=== PATIENT | female | born 1945 | race Caucasian/White ===

== ENCOUNTER → 2016-07-08 | Outpatient (CLI) | payer OTHER, BC | END | disposition home or self-care (01) | LOC: C.PAPS 14:33 | PROVIDERS: ATTEND Obstetrics & Gynecology | DX: Z12.4 Encounter for screening for malignant neoplasm of cervix (principal) ==

== ENCOUNTER → 2016-09-09 | Outpatient (CLI) | payer OTHER, BC ==
--- NOTE | 2016-09-09 14:52 | MAMMOGRAPHY REPORT ---
BILATERAL DIGITAL SCREENING MAMMOGRAM WITH CAD: 09/09/2016 CLINICAL HISTORY: Routine screening. Patient has no complaints. TECHNIQUE: Bilateral CC and MLO views were obtained. Current study was also evaluated with a Comput er Aided Detection (CAD) system. COMPARISON: Comparison is made to exams dated: 09/09/2015 mammogram, 09/05/2014 mammogram, 09/04/2013 mammogram, 08/31/2012 mammogram, 08/19/2011 mammogram, and 08/06/2010 mammogram - [facility]. BREAST COMPOSITION: There are scattered areas of fibroglandular density in both breasts. FINDINGS: There is stable nodular asymmetry in the anterior subareolar right breast. There are mil d vascular calcifications and scattered benign-appearing microcalcifications. No new suspicious mas s, architectural distortion or cluster of microcalcifications is seen. IMPRESSION: ACR BI-RADS CATEGORY 1: NEGATIVE There is no mammographic evidence of malignancy. A 1 year screening mammogram is recommended. The p atient will receive written notification of the results. Approximately 10% of breast cancers are not detected with mammography. A negative mammographic repor t should not delay biopsy if a clinically suggestive mass is present. Sandi Nickerson M.D. ay/:09/09/2016 11:53:35 [employer] Driver: Jen NOLASCO(R)(M), [facility] letter sent: Normal 1/2 BI-RADS Code: ACR BI-RADS Category 1: Negative
== END ==
LOC: C.MAMM 10:40
PROVIDERS: ATTEND Obstetrics & Gynecology
DX: Z12.31 Encounter for screening mammogram for malignant neoplasm of breast (principal)

== ENCOUNTER → 2016-09-28 | Outpatient (CLI) | payer OTHER, BC ==
--- NOTE | 2016-09-28 14:04 | DIAGNOSTIC IMAGING REPORT ---
LEFT ANKLE MIN 3 VIEWS ROUTINE CLINICAL HISTORY: Left ankle pain COMPARISON: None. DISCUSSION: There is a 2 mm age-indeterminate avulsion adjacent the lateral malleolar tip. There is a corticated ossicle adjacent to medial malleolar tip. This felt to be old. There is minor lateral soft tissue swelling. The ankle mortise appears intact. IMPRESSION: 2 mm age-indeterminate avulsion adjacent to the lateral malleolar tip. Electronically signed by: Jordan Rosario M.D. 09/28/2016 2:03 PM Dictated Date/Time: 09/28/2016 2:02 PM
== END | disposition home or self-care (01) ==
LOC: C.RAD 13:42
PROVIDERS: ATTEND Internal Medicine
DX: S99.919A Unspecified injury of unspecified ankle, initial encounter (principal); X58.XXXA Exposure to other specified factors, initial encounter

== ENCOUNTER → 2016-10-23 | Outpatient (CLI) | payer OTHER, BC ==
--- NOTE | 2016-10-23 13:21 | DIAGNOSTIC IMAGING REPORT ---
LEFT ANKLE 3 VIEWS HISTORY: LEFT ANKLE PAIN COMPARISON: Left ankle 09/28/2016. FINDINGS: No change in the 2 mm age-indeterminate avulsion fracture at the tip of the lateral malleolus. There is also a small ossific density adjacent to the medial malleolus consistent with an old avulsion injury. Mild soft tissue swelling, unchanged. No dislocation. No radiopaque foreign bodies. IMPRESSION: No change in the 2 mm age-indeterminate avulsion adjacent to the tip of the lateral malleolus. Electronically signed by: Brady Singh M.D. 10/23/2016 1:20 PM Dictated Date/Time: 10/23/2016 1:18 PM
== END | disposition home or self-care (01) ==
LOC: C.RDSM 14:05
PROVIDERS: ATTEND Physician Assistant
DX: M25.572 Pain in left ankle and joints of left foot (principal)

== ENCOUNTER → 2016-11-30 | Outpatient (CLI) | payer OTHER, BC ==
[2016-11-30 12:12] LABS: BASO % 0.2 %; BASO ABS # 0.01 K/uL (0-0.2); COMPLETE YES; HEMATOCRIT 40.8 % (37-47); IG% 0.2 %; LYMPH % 32.9 %; LYMPH ABS # 1.57 K/uL (1.2-3.4); MEAN CELL VOLUME 92.5 fL (80-100); MEAN CORPUSCULAR HEMOGLOBIN 30.4 pg (25-34); MEAN CORPUSCULAR HGB CONC 32.8 g/dl (32-36); MONO % 12.4 %; NEUT % 53.3 %; PLATELET COUNT 268 K/uL (130-400); RED BLOOD COUNT 4.41 M/uL (4.2-5.4); WHITE BLOOD COUNT 4.77 K/uL (4.8-10.8)
[2016-11-30 12:36] LABS: CHOLESTEROL/HDL RATIO 2.6
== END | disposition home or self-care (01) ==
LOC: C.LABBFT 10:59
PROVIDERS: ATTEND Internal Medicine
DX: R05 Cough (principal); Z13.6 Encounter for screening for cardiovascular disorders; M85.80 Other specified disorders of bone density and structure, unspecified site; K44.9 Diaphragmatic hernia without obstruction or gangrene

== ENCOUNTER → 2016-11-30 | Outpatient (CLI) | payer OTHER, BC ==
[~2016-11-30] MED LIST: OPTIRAY 320 IV PRN
--- NOTE | 2016-11-30 10:50 | DIAGNOSTIC IMAGING REPORT ---
CT OF THE CHEST WITH IV CONTRAST CLINICAL HISTORY: Chronic cough COMPARISON STUDY: No previous studies for comparison. TECHNIQUE: Following the IV administration of 93 mL of Optiray-320, CT of the thorax was performed from the thoracic inlet to the lung bases. Images are reviewed in the axial, sagittal, and coronal planes. IV contrast was administered without complication. A dose lowering technique was utilized adhering to the principles of ALARA. CT DOSE: 245.52 mGycm FINDINGS: Thyroid: There is a 4 mm right lobe thyroid nodule. Thoracic aorta: The thoracic aorta is normal in course and caliber, noting standard 3-vessel arch anatomy. No aneurysm or dissection is seen. Pulmonary vasculature: The pulmonary trunk is normal in caliber. There are no central filling defects identified to suggest pulmonary embolus. Note that this examination was not protocoled for the evaluation of pulmonary emboli. HEART: The heart is normal in size and configuration, without pericardial effusion. Lungs and pleural spaces: There are no pleural effusions. There is no focal pulmonary consolidation. There is minor apical scarring. No endobronchial lesions are visualized. Mediastinum: There is no mediastinal lymphadenopathy. Maria Dolores: Clear. Axilla: Clear. Upper abdomen: There is a hiatal hernia. Skeletal structures: There are no lytic or blastic osseous lesions. IMPRESSION: 1. No acute intrathoracic findings 2. No evidence of pathologic adenopathy 3. No suspicious pulmonary masses. No evidence of focal pulmonary consolidation 4. Hiatal hernia Electronically signed by: Jordan Rosario M.D. 11/30/2016 10:48 AM Dictated Date/Time: 11/30/2016 10:45 AM
== END | disposition home or self-care (01) ==
LOC: C.CTS 10:07
PROVIDERS: ATTEND Internal Medicine Critical Care Medicine
DX: R05 Cough (principal); K44.9 Diaphragmatic hernia without obstruction or gangrene

== ENCOUNTER → 2016-12-29 | Outpatient (CLI) | payer OTHER, BC | END | disposition home or self-care (01) | LOC: C.MAMM 12:35 | PROVIDERS: ATTEND Internal Medicine | DX: S82.402A Unspecified fracture of shaft of left fibula, initial encounter for closed fracture (principal); X58.XXXA Exposure to other specified factors, initial encounter; M85.89 Other specified disorders of bone density and structure, multiple sites ==

== ENCOUNTER → 2017-02-08 | Outpatient (CLI) | payer OTHER, BC ==
--- NOTE | 2017-02-08 16:39 | DIAGNOSTIC IMAGING REPORT ---
L VENOUS DOPP LOWER EXT UNILAT HISTORY: 72 years-old Female LLE PAIN SWELLING acute left lower extremity pain and swelling COMPARISON: None available TECHNIQUE: Multiple real-time sonogram images of the left lower extremity deep venous structures were obtained assessing grayscale appearance, color and spectral flow FINDINGS: There is normal flow, phasicity and augmentation of the left lower extremity deep venous structures. There is a slightly irregular mildly complex fluid collection of the lateral aspect of the left thigh, 18.7 x 5.9 x 6.5 cm which is parallel to the skin surface without internal vascularity documented. This collection appears to be within the deep subcutaneous and/or intramuscular. IMPRESSION: 1. No sonographic evidence of deep venous thrombosis. 2. Irregular complex hypoechoic collection of the lateral superior left thigh measuring up to 18.7 x 5.9 x 6.5 cm appears intramuscular and is nonspecific with differential considerations including liquefying hematoma or abscess. The above report was generated using voice recognition software. It may contain grammatical, syntax or spelling errors. Electronically signed by: Jung Nguyen M.D. 02/08/2017 4:38 PM Dictated Date/Time: 02/08/2017 4:34 PM
== END | disposition home or self-care (01) ==
LOC: C.ULTR 15:49
PROVIDERS: ATTEND Internal Medicine
DX: M79.89 Other specified soft tissue disorders (principal); R93.6 Abnormal findings on diagnostic imaging of limbs

== ENCOUNTER → 2017-07-19 | Day surgery (SDC) | payer OTHER, BC ==
[2017-07-02 09:47] VITALS: Ht 162.6 cm; Wt 61.8 kg
[~2017-07-19] VITALS: Ht 162.6 cm; Wt 61.8 kg
[~2017-07-19] MED LIST changes: +LIDOCAINE HCL 2% 2 ML VIAL (20MG/ML) ONE; +MECL1TAB42 PO; -OPTIRAY 320 IV PRN; +PROPOFOL IV EMULSION 10 MG/ML 20 ML VIAL IV ONE; +SODIUM CHLORIDE 0.9% 500ML 500 ML IV ONE
--- NOTE | 2017-07-19 14:15 | Endo History and Physical ---
History & Physical Date of Service: Jul 19, 2017. Chief Complaint: REFLUX/CHRONIC COUGH Referring Physician: DR CALIXTO/SWEET History of Present Illness 72 yo CF who presents for EGD with Hsieh pH placement secondary to GERD and chronic cough. Past Surgical History Hx Cardiac Surgery: No Hx Internal Defibrillator: No Hx Pacemaker: No Hx Abdominal Surgery: Yes (TUBAL LIGATION) Hx of Implantable Prosthesis: No Hx Post-Op Nausea and Vomiting: No Hx Cancer Surgery: Yes (BCC REMOVED) Hx Thoracic Surgery: No Hx Orthopedic: No Hx Urinary Tract Surgery: No Family History Colon CA Social History Smoking Status: Never Smoker Hx Substance Use: No Hx Alcohol Use: Yes (OCCASIONALLY) Allergies Coded Allergies: No Known Allergies (Verified , 07/02/17) Current Medications Reported Home Medications Medications Dose Route/Sig Max Daily Dose Days Date Category Meclizine Hcl 25 Mg Tab 1 Tab PO DIRECTED PRN 07/02/17 Reported Vital Signs Weight (Kilograms): 61.82 Height (Feet): 5 Height (Inches): 4 Date Time Temp Pulse Resp B/P (MAP) Pulse Ox O2 Delivery O2 Flow Rate FiO2 07/19/17 13:25 36.9 85 18 132/68 (89) 98 Room Air Physical Exam General Appearance: WD/WN, no apparent distress Respiratory/Chest: Auscultation: breath sounds normal Cardiovascular: Heart Auscultation: RRR Abdomen: Bowel Sounds: normal Inspection & Palpation: soft, non-distended, no tenderness, guarding & rebound Assessment and Plan Assessment: 72 yo CF who presents for EGD with Hsieh pH placement secondary to GERD and chronic cough. Plan: Proceed with EGD.
--- NOTE | 2017-07-19 15:07 | Anesthesiology Progress Note ---
Anesthesia Post Op Note Date & Time Jul 19, 2017 at 15:07 Vital Signs Pain Intensity: 0 Vital Signs Past 12 Hours Date Time Temp Pulse Resp B/P (MAP) Pulse Ox O2 Delivery O2 Flow Rate FiO2 07/19/17 13:25 36.9 85 18 132/68 (89) 98 Room Air Notes Mental Status: alert / awake / arousable, participated in evaluation Pt Amnestic to Procedure: Yes Nausea / Vomiting: adequately controlled Pain: adequately controlled Airway Patency, RR, SpO2: stable & adequate BP & HR: stable & adequate Hydration State: stable & adequate Anesthetic Complications: no major complications apparent Earlier note was entered prematurely. At this time (1530) pt is awake, alert and oriented in PACU without complaints or complications.
--- NOTE | 2017-07-19 15:22 | GI REPORT ---
Procedure Date: 07/19/2017 1:58 PM Procedure: Upper GI endoscopy Indications: Suspected gastro-esophageal reflux disease Medicines: Monitored Anesthesia Care Complications: No immediate complications. Estimated Blood Loss: Estimated blood loss: none. Procedure: Pre-Anesthesia Assessment: - Prior to the procedure, a History and Physical was performed, and patient medications and allergies were reviewed. The patient's tolerance of previous anesthesia was also reviewed. The risks and benefits of the procedure and the sedation options and risks were discussed with the patient. All questions were answered, and informed consent was obtained. Prior Anticoagulants: The patient has taken no previous anticoagulant or antiplatelet agents. ASA Grade Assessment: II - A patient with mild systemic disease. After reviewing the risks and benefits, the patient was deemed in satisfactory condition to undergo the procedure. After obtaining informed consent, the endoscope was passed under direct vision. Throughout the procedure, the patient's blood pressure, pulse, and oxygen saturations were monitored continuously. The scope was introduced through the mouth, and advanced to the second part of duodenum. The upper GI endoscopy was accomplished without difficulty. The patient tolerated the procedure well. Findings: A moderate Schatzki ring (acquired) was found at the gastroesophageal junction. A TTS dilator was passed through the scope. Dilation with an 18-19-20 mm balloon dilator was performed to 20 mm. The dilation site was examined and showed moderate improvement in luminal narrowing. A small hiatal hernia was present. The examined duodenum was normal. Impression: - Moderate Schatzki ring. Dilated. - Small hiatal hernia. - Normal examined duodenum. - No specimens collected. Recommendation: - Resume previous diet. - Use Protonix (pantoprazole) 40 mg PO daily. - Return to GI clinic as previously scheduled. - No Hsieh pH monitor placed, as patient has Hiatal hernia and Schatzki's ring, therefore, will treat with PPI therapy and reevaluate in approximately 6 weeks. If still symptomatic, can consider Hsieh pH monitor at that time. Dayne Alfaro, DO 07/19/2017 3:21:59 PM This report has been signed electronically. Note Initiated On: 07/19/2017 1:58 PM I attest to the content of the Intraoperative Record and orders documented therein, exceptions below
--- NOTE | 2017-07-19 15:23 | Discharge Instructions ---
Endoscopy Patient Instructions Date / Procedure(s) Performed Jul 19, 2017. EGD Allergy Information Coded Allergies: No Known Allergies (Verified , 07/02/17) Discharge Date / Findings Jul 19, 2017. Schatzki's ring s/p dilation Hiatal hernia Medication Instructions OK to resume all medications today as prescribed Reported Home Medications Medications Dose Route/Sig Max Daily Dose Days Date Category Meclizine Hcl 25 Mg Tab 1 Tab PO DIRECTED PRN 07/02/17 Reported Provider Instructions Activity Restrictions - No exercising or heavy lifting for 24 hours. - Do not drink alcohol the day of the procedure. - Do not drive a car or operate machinery until the day after the procedure. - Do not make any important decisions or sign important papers in 24 hours after the procedure. Following Day: - Return to full activity which may include returning to work/school. Diet Start your diet with liquids and light foods (jello, soup, juice, toast). Then eat your usual diet if not nauseated. Treatment For Common After Affects For mild abdominal pain, bloating, or excessive gas: - Rest - Eat lightly - Lie on right side Follow-Up Information Follow-up with DR CALIXTO/SWEET as scheduled Anesthesia Information What You Should Know You have had a procedure that required some medicine to reduce anxiety and discomfort. This treatment is called moderate sedation. After receiving the treatment, you may be sleepy, but you will be able to breathe on your own. The effects of the treatment may last for several hours. Follow these instructions along with Activity/Diet recommendations noted above: * Do NOT do anything where dizziness or clumsiness would be dangerous. * Rest quietly at home today, then you can be up and about tomorrow. * Have a responsible person stay with you the rest of today. * You may have had an I.V. today. If so, you may take the dressing off later today. Recommendations Call your doctor if: * Trouble breathing * Continuous vomiting for more than 24 hours * Temperature above 101 degrees * Severe abdominal pain or bloating * Pain not relieved by pain medicine ordered * There is increased drainage or redness from any incision * A large amount of rectal bleeding greater than 2-3 tablespoons. (If you had a polyp/s removed or have hemorrhoids, a small amount of blood - from the rectum is to be expected.) * You have any unanswered questions or concerns. IN THE EVENT OF A SERIOUS EMERGENCY, GO TO THE NEAREST EMERGENCY ROOM Your discharge instructions were prepared by provider Dayne Alfaro. Patient Instructions Signature Page Manuela Bustamante Patient (or Guardian) Signature/Date: I have read and understand the instructions given to me by my caregivers. Caregiver/RN/Doctor Signature/Date: The above-named patient and/or guardian has received patient instructions on this date. + Original Patient Signature Page (only) stays with chart. Please make copy for patient.
[2017-07-19 15:50] VITALS: BP 149/82; PULSE 69; O2SAT 99
== END | disposition home or self-care (01) ==
LOC: C.GI 12:52
PROVIDERS: ATTEND Internal Medicine
DX: K21.9 Gastro-esophageal reflux disease without esophagitis (principal); R05 Cough; K22.2 Esophageal obstruction; K44.9 Diaphragmatic hernia without obstruction or gangrene; Z98.51 Tubal ligation status; Z98.890 Other specified postprocedural states; Z98.818 Other dental procedure status; Z86.718 Personal history of other venous thrombosis and embolism; Z80.0 Family history of malignant neoplasm of digestive organs

== ENCOUNTER → 2017-09-15 | Outpatient (CLI) | payer OTHER, BC ==
[~2017-09-15] MED LIST changes: -LIDOCAINE HCL 2% 2 ML VIAL (20MG/ML) ONE; -PROPOFOL IV EMULSION 10 MG/ML 20 ML VIAL IV ONE; -SODIUM CHLORIDE 0.9% 500ML 500 ML IV ONE
--- NOTE | 2017-09-15 14:23 | MAMMOGRAPHY REPORT ---
BILATERAL DIGITAL SCREENING MAMMOGRAM TOMOSYNTHESIS WITH CAD: 09/15/2017 CLINICAL HISTORY: Routine screening. Patient has no complaints. TECHNIQUE: Breast tomosynthesis in addition to standard 2D mammography was performed. Current study was also evaluated with a Computer Aided Detection (CAD) system. COMPARISON: Comparison is made to exams dated: 09/09/2016 mammogram, 09/09/2015 mammogram, 09/05/2014 m ammogram, 09/04/2013 mammogram, 08/19/2011 mammogram, and 08/06/2010 mammogram - [facility] enter. BREAST COMPOSITION: There are scattered areas of fibroglandular density in both breasts. FINDINGS: No suspicious masses, calcifications, or areas of architectural distortion are noted in ei ther breast. There has been no significant interval change compared to prior exams. Scattered bilater al benign-appearing calcifications are not significantly changed. IMPRESSION: ACR BI-RADS CATEGORY 2: BENIGN There is no mammographic evidence of malignancy. A 1 year screening mammogram is recommended. The pa tient will receive written notification of the results. Approximately 10% of breast cancers are not detected with mammography. A negative mammographic report should not delay biopsy if a clinically suggestive mass is present. Mireya Aguilar M.D. 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
== END | disposition home or self-care (01) ==
LOC: C.MAMM 10:25
PROVIDERS: ATTEND Obstetrics & Gynecology
DX: Z12.31 Encounter for screening mammogram for malignant neoplasm of breast (principal)

== ENCOUNTER 2017-12-01 16:23 | Emergency (ER) | payer OTHER, BC ==
[~2017-12-01] VITALS: Ht 162.6 cm; Wt 62.9 kg
[~2017-12-01 16:23] MED LIST changes: -DOXY-300 PO; -DOXY100C76 PO; -PANT40TA PO; -PROM25TA16 PO
[2017-12-01 16:27] VITALS: TEMP 36.6; Ht 162.6 cm; Wt 62.9 kg
[2017-12-01] MEDS ORDERED: SODIUM CHLORIDE 0.9% 1000ML 1,000 ML IV STA ×2 (16:40→18:39)
[2017-12-01] MEDS ORDERED: SODIUM CHLORIDE 0.9% 500ML 500 ML IV STA (16:41)
--- NOTE | 2017-12-01 16:41 | EMERGENCY ROOM VISIT NOTE ---
History Report prepared by Fernie: Jackie Thomas Under the Supervision of: Dr. Rich Means M.D. 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 Positive back pain, lower abdominal pain, nausea, vomiting, fevers, chills , loose diarrhea. Negative hematochezia, blood in her urine, pain with urination , drinking stream or well water, being around anyone else who is sick, recent travel, tick bites. She was referred to the ED by her PCP. 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 A total of ten systems were reviewed and were otherwise negative. Past Medical & Surgical Surgical Problems: (1) History of tubal ligation Family History No pertinent family history Social History Smoking Status: Never Smoker Smokeless Tobacco Use: No Marital Status: Housing Status: lives with significant other Current/Historical Medications Scheduled Doxycycline Monohydrate (Monodox), 100 MG PO Q12 Pantoprazole (Protonix), 40 MG PO DAILY Scheduled PRN Meclizine Hcl (Meclizine Hcl), 1 TAB PO DIRECTED PRN for CAR SICK Promethazine HCl (Promethazine HCl), 25 MG PO Q6H PRN for Nausea Allergies Coded Allergies: No Known Allergies (Verified , 07/02/17) Physical Exam Vital Signs Date Time Temp Pulse Resp B/P (MAP) Pulse Ox O2 Delivery O2 Flow Rate FiO2 12/01/17 19:51 88 20 111/68 98 12/01/17 18:59 99 12/01/17 18:36 138 12/01/17 18:22 131 18 114/69 91 Room Air 8/8/18 17:30 100 12/01/17 17:20 100 18 105/55 99 Room Air 12/01/17 16:27 36.6 108 20 116/77 96 Room Air Physical Exam GENERAL: Awake, alert, well-appearing, NAD HENT: Normocephalic, atraumatic. Dry MM. EYES: Normal conjunctiva. Sclera non-icteric. PERRL. No anisocoria. NECK: Supple. No nuchal rigidity. FROM. RESPIRATORY: CTAB, no rhonchi, wheezing, crackles CARDIAC: RRR, no MRG ABDOMEN: Soft, Lower abdominal discomfort throughout. No upper abd pain. Negative obturators and psoas, BS+ MSK: No chest wall TTP, no LE edema NEURO: GCS 15, CN 2-12 intact, moves all 4s on command SKIN: No rash or jaundice noted. Medical Decision & Procedures ER Provider Diagnostic Interpretation: Radiology results as stated below per my review and radiologist interpretation: ABD/PELVIS IV CONTRAST ONLY CT DOSE: 276.87 mGy.cm HISTORY: Pain perisistent wretching, loose stools, lower ab pain x 10 days TECHNIQUE: Multiaxial CT images of the abdomen and pelvis were performed following the use of intravenous contrast. A dose lowering technique was utilized adhering to the principles of ALARA. COMPARISON STUDY: None. FINDINGS: Hiatal hernia. Bibasilar atelectatic and/or fibrotic change. Liver spleen and pancreas are uniform. Kidneys negative for hydronephrosis. The adrenal glands are normal. Nonobstructive bowel pattern. Minimal infiltrative change of the small bowel suggesting nonspecific enteritis. No evidence for abscess collection or obstruction. No evidence for pneumatosis. Inguinal regions are unremarkable. IMPRESSION: 1. Hiatal hernia. 2. Bibasilar atelectatic and/or infiltrative change. 3. Mild nonspecific small bowel enteritis. 4. No evidence for abscess collection or obstruction. 5. note is made of an old fracture of the right pubic ring. The above report was generated using voice recognition software. It may contain grammatical, syntax or spelling errors. Electronically signed by: Kiran Finley M.D. 12/01/2017 6:19 PM Laboratory Results 12/01/17 17:15 Red Blood Count 4.33, Mean Corpuscular Volume 87.1, Mean Corpuscular Hemoglobin 30.3, Mean Corpuscular Hemoglobin Concent 34.7, Mean Platelet Volume 11.2, Neutrophils (%) (Auto) 78.2, Lymphocytes (%) (Auto) 14.1, Monocytes (%) (Auto) 6.0, Eosinophils (%) (Auto) 0.1, Basophils (%) (Auto) 0.8, Neutrophils # (Auto) 5.60, Lymphocytes # (Auto) 1.01, Monocytes # (Auto) 0.43, Eosinophils # (Auto) 0.01, Basophils # (Auto) 0.06 12/01/17 17:15 Test 12/01/17 17:15 12/01/17 17:22 12/01/17 18:21 White Blood Count 7.17 K/uL (4.8-10.8) Red Blood Count 4.33 M/uL (4.2-5.4) Hemoglobin 13.1 g/dL (12.0-16.0) Hematocrit 37.7 % (37-47) Mean Corpuscular Volume 87.1 fL (80-100) Mean Corpuscular Hemoglobin 30.3 pg (25-34) Mean Corpuscular Hemoglobin Concent 34.7 g/dl (32-36) Platelet Count 162 K/uL (130-400) Mean Platelet Volume 11.2 fL (7.4-10.4) Neutrophils (%) (Auto) 78.2 % Lymphocytes (%) (Auto) 14.1 % Monocytes (%) (Auto) 6.0 % Eosinophils (%) (Auto) 0.1 % Basophils (%) (Auto) 0.8 % Neutrophils # (Auto) 5.60 K/uL (1.4-6.5) Lymphocytes # (Auto) 1.01 K/uL (1.2-3.4) Monocytes # (Auto) 0.43 K/uL (0.11-0.59) Eosinophils # (Auto) 0.01 K/uL (0-0.5) Basophils # (Auto) 0.06 K/uL (0-0.2) RDW Standard Deviation 45.0 fL (36.4-46.3) RDW Coefficient of Variation 14.1 % (11.5-14.5) Immature Granulocyte % (Auto) 0.8 % Immature Granulocyte # (Auto) 0.06 K/uL (0.00-0.02) Est Creatinine Clear Calc Drug Dose 43.3 ml/min Estimated GFR () 63.3 Estimated GFR (Non- 54.6 BUN/Creatinine Ratio 37.8 (10-20) Calcium Level 8.1 mg/dl (8.5-10.1) Phosphorus Level 2.5 mg/dl (2.5-4.9) Magnesium Level 2.3 mg/dl (1.8-2.4) Total Bilirubin 1.0 mg/dl (0.2-1) Direct Bilirubin 0.6 mg/dl (0-0.2) Aspartate Amino Transf (AST/SGOT) 49 U/L (15-37) Alanine Aminotransferase (ALT/SGPT) 62 U/L (12-78) Alkaline Phosphatase 272 U/L (45-117) Total Protein 6.8 gm/dl (6.4-8.2) Albumin 2.4 gm/dl (3.4-5.0) Lipase 71 U/L (73-393) Bedside Hemoglobin 12.9 g/dl (12.0-16.0) Bedside Hematocrit 38 % (37-47) Bedside Sodium 132 mEq/L (135-144) Bedside Potassium 3.9 mEq/L (3.3-5.0) Bedside Chloride 92 mEq/L (101-112) Bedside Total CO2 24 mEq/l (24-31) Anion Gap 21.0 mmol/L (16-25) Bedside Blood Urea Nitrogen 36 mg/dl (7-18) Bedside Creatinine 1.1 mg/dl (0.6-1.3) Bedside Glucose (other) 95 mg/dl (70-99) Bedside Ionized Calcium (Cass) 1.05 mmol/l (1.12-1.32) Urine Color YELLOW Urine Appearance CLEAR (CLEAR) Urine pH 5.5 (4.5-7.5) Urine Specific Orange 1.011 (1.000-1.030) Urine Protein NEG (NEG) Urine Glucose (UA) NEG (NEG) Urine Ketones TRACE (NEG) Urine Occult Blood TRACE (NEG) Urine Nitrite NEG (NEG) Urine Bilirubin NEG (NEG) Urine Urobilinogen NEG (NEG) Urine Leukocyte Esterase NEG (NEG) Urine WBC (Auto) 1-5 /hpf (0-5) Urine RBC (Auto) 0-4 /hpf (0-4) Urine Hyaline Casts (Auto) 0 /lpf (0-5) Urine Epithelial Cells (Auto) 0-5 /lpf (0-5) Urine Bacteria (Auto) NEG (NEG) Laboratory results reviewed by me Medications Administered Medications (Trade) Dose Ordered Sig/Radha Route Start Time Stop Time Status Last Admin Dose Admin Sodium Chloride 1,000 ml @ 999 mls/hr Q1H1M STAT IV 12/01/17 16:40 12/01/17 17:40 DC 12/01/17 17:29 999 MLS/HR Sodium Chloride 500 ml @ 500 mls/hr Q1H STAT IV 12/01/17 16:41 12/01/17 17:40 DC 12/01/17 17:30 500 MLS/HR Calcium Carbonate (Tums Chew Tab) 1,500 mg ONE STAT PO 12/01/17 17:46 12/01/17 17:47 DC 12/01/17 18:20 1,500 MG Sodium Chloride 1,000 ml @ 999 mls/hr Q1H1M STAT IV 12/01/17 18:39 12/01/17 19:39 DC 12/01/17 18:39 999 MLS/HR ECG Per My Interpretation Indication: tachycardia Rate (beats per minute): 95 Rhythm: sinus rhythm Findings: other (normal intervals, normal axis, no STS changes or TWI) Change: Repeat EKG done at 1825 shows Afib RVR with a rate of 130, normal QRS duration, normal axis, no STS changes or TWI Repeat EKG done at 1906 shows Sinus Rhythm with PACs rate of 89, normal intervals, normal axis, no STS changes or TWi ED Course 163: The patient was evaluated in room A12. A complete history and physical exam was performed. 1821: I checked on the patient at this time. I informed her of her imaging. 1852: I performed a bedside ultrasound at this time. 1915: Discussed the patient's case with Dr. Case Reno, Cardiology. 1918: I reevaluated the patient. Discussed results and discharge instructions: She verbalized understanding and agreement. The patient is ready for discharge. Medical Decision Nursing notes reviewed. Ancillary studies and prior records reviewed. Differential diagnosis: Etiologies such as appendicitis, diverticulitis, PUD, biliary pathology, UTI, pancreatitis, obstruction, mesenteric ischemia, aortic pathology, infections, inflammatory bowel disease, renal colic, as well as others were entertained. Patient was seen and evaluated the bedside. Patient has a history of reflux that was presenting after 10 days of nausea with associated retching and loose stools. Patient denies a fair amount of other questioning. No fevers. The patient does have dry mucous membranes and some abdominal discomfort. Patient denies any blood in stools. Patient did blood work completed, EKG, LFTs, lipase, CT the abdomen pelvis and the patient was given IV fluids. The patient denied any current nausea or pain. Patient's blood work showed normal white blood cell count and no anemia. The patient did have mild elevations in alk phos. The patient does not have elevations in other LFTs are even her T bili. The patient does not have any right upper quadrant discomfort. I do not believe she requires right upper quadrant ultrasound. Patient CT does show some nonspecific colitis but is otherwise unremarkable. Patient did have some mildly low calcium so she was given some Tums. The patient did have an elevated heart rate into the 130s on an EKG showed the patient did have A. fib. I did do a bedside ultrasound showed the patient had good squeeze no pericardial effusion and could tolerate some additional volume so rate control medications were avoided at this time. The patient would have a chads 2 vasc score of 2 given the patient's age and sex. The patient denies any symptoms. I did speak with the on-call account group supervisor. Patient was feeling improved. Patient's heart rate improved and the patient repeat EKG thereafter was in normal sinus rhythm. Gyn recommended follow-up with PCP. Patient was given warning signs which to return. I did speak with onsite case manager in order to help facilitate a follow-up appointment. Patient was given strict follow-up, discharge, and return precautions. All questions were answered. Patient was deemed suitable for outpatient follow-up at this time. Patient agreed with the plan of care and was safely discharged home. Head Trauma GCS Score: 15 Medication Reconcilliation Current Medication List: was personally reviewed by me Blood Pressure Screening Patient's blood pressure: Normal blood pressure Blood pressure disposition: Did not require urgent referral Consults Time Called: 1913 Consulting Physician: Dr. Case Reno, Cardiology Returned Call: 1915 Discussed the patient's case with Dr. Case Reno, Cardiology. The patient will follow up as an outpatient w/ the PCP and have a referral if needed. No anticoagulant medications at this time. Impression Primary Impression: Enteritis Additional Impressions: Atrial fib/flutter, transient Dehydration Scribe Attestation The scribe's documentation has been prepared under my direction and personally reviewed by me in its entirety. I confirm that the note above accurately reflects all work, treatment, procedures, and medical decision making performed by me. Departure Information Dispostion Home / Self-Care Referrals Amos Croft M.D. (PCP) Forms HOME CARE DOCUMENTATION FORM, IMPORTANT VISIT INFORMATION, WORK / SCHOOL INSTRUCTIONS Patient Instructions Atrial Fibrillation Dc, Dehydration, My [facility] Additional Instructions Please return to the emergency department if you have worsening or recurrent symptoms not amenable to at-home treatment. Please call for a follow-up appointment with her primary care physician. Please take your medications as prescribed. If you have other concerns and/or complaints please feel free to also call your primary care physician's office or return the ED for further evaluation, management, and treatment. You may take 400 mg Ibuprofen every 6 hours as needed for pain/fever with food unless told by your physician not to take NSAIDs. You may take tylenol 650 mg every 6 hours as needed for pain/fever unless told by your physician to not take it or have liver problems. You may take motrin and tylenol separately or at the same time. You intermittently had atrial fibrillation. Please keep your follow-up appointment with her PCP. Return to the emergency department if you have any racing heart, lightheadedness, or worsening symptoms. Take your medications as prescribed. You have been examined and treated today on an emergency basis only. This is not a substitute for, or an effort to provide, complete comprehensive medical care. It is impossible to recognize and treat all injuries or illnesses in a single emergency department visit. It is therefore important that you follow up closely with [facility], your PCP, and/or your specialist(s). Call as soon as possible for an appointment. Thank you for your time and consideration. I look forward to speaking with you again soon. Please don't hesitate to call us if you have any questions. Problem Qualifiers
[2017-12-01] MEDS ORDERED: DOXY100C76 PO (16:43)
[2017-12-01] MEDS ORDERED: PANT40TA PO (16:43)
[2017-12-01] MEDS ORDERED: PROM25TA16 PO (16:43)
[2017-12-01] MEDS ORDERED: OPTIRAY 320 IV PRN (16:45)
[2017-12-01 17:36] LABS: BASO % 0.8 %; BASO ABS # 0.06 K/uL (0-0.2); EOS % 0.1 %; EOS ABS # 0.01 K/uL (0-0.5); HEMATOCRIT 37.7 % (37-47); HEMOGLOBIN 13.1 g/dL (12.0-16.0); IG# 0.06 K/uL (0.00-0.02); LYMPH % 14.1 %; LYMPH ABS # 1.01 K/uL (1.2-3.4); MEAN CELL VOLUME 87.1 fL (80-100); MEAN CORPUSCULAR HEMOGLOBIN 30.3 pg (25-34); MEAN CORPUSCULAR HGB CONC 34.7 g/dl (32-36); MEAN PLATELET VOLUME 11.2 fL (7.4-10.4); MONO ABS # 0.43 K/uL (0.11-0.59); NEUT % 78.2 %; PLATELET COUNT 162 K/uL (130-400); RED CELL DISTRIBUTION WIDTH CV 14.1 % (11.5-14.5); WHITE BLOOD COUNT 7.17 K/uL (4.8-10.8)
[2017-12-01 17:39] LABS: ISTAT CREATININE 1.1 mg/dl (0.6-1.3); ISTAT IONIZED CALCIUM 1.05 mmol/l (1.12-1.32); ISTAT POTASSIUM 3.9 mEq/L (3.3-5.0)
[2017-12-01] MEDS ORDERED: CALCIUM CARBONATE 500 MG CHEWABLE PO STA (17:46)
[2017-12-01 17:53] LABS: ALBUMIN 2.4 gm/dl (3.4-5.0); CALCIUM 8.1 mg/dl (8.5-10.1); CREATININE 1.03 mg/dl (0.60-1.20); PHOSPHORUS 2.5 mg/dl (2.5-4.9); POTASSIUM 3.9 mmol/L (3.5-5.1); TOTAL PROTEIN 6.8 gm/dl (6.4-8.2)
--- NOTE | 2017-12-01 18:20 | DIAGNOSTIC IMAGING REPORT ---
ABD/PELVIS IV CONTRAST ONLY CT DOSE: 276.87 mGy.cm HISTORY: Pain perisistent wretching, loose stools, lower ab pain x 10 days TECHNIQUE: Multiaxial CT images of the abdomen and pelvis were performed following the use of intravenous contrast. A dose lowering technique was utilized adhering to the principles of ALARA. COMPARISON STUDY: None. FINDINGS: Hiatal hernia. Bibasilar atelectatic and/or fibrotic change. Liver spleen and pancreas are uniform. Kidneys negative for hydronephrosis. The adrenal glands are normal. Nonobstructive bowel pattern. Minimal infiltrative change of the small bowel suggesting nonspecific enteritis. No evidence for abscess collection or obstruction. No evidence for pneumatosis. Inguinal regions are unremarkable. IMPRESSION: 1. Hiatal hernia. 2. Bibasilar atelectatic and/or infiltrative change. 3. Mild nonspecific small bowel enteritis. 4. No evidence for abscess collection or obstruction. 5. note is made of an old fracture of the right pubic ring. The above report was generated using voice recognition software. It may contain grammatical, syntax or spelling errors. Electronically signed by: Kiran Finley M.D. 12/01/2017 6:19 PM Dictated Date/Time: 12/01/2017 6:16 PM
[2017-12-01 19:51] VITALS: BP 111/68; PULSE 88; O2SAT 98
== END 2017-12-01 19:53 | disposition home or self-care (01) ==
LOC: C.EDB 16:24 → C.EDA 19:53
DX: K52.9 Noninfective gastroenteritis and colitis, unspecified (principal); I48.91 Unspecified atrial fibrillation; E86.0 Dehydration

== ENCOUNTER → 2017-12-01 | Outpatient (CLI) | payer OTHER, BC ==
[~2017-12-01] MED LIST changes: +DOXY-300 PO; +DOXY100C76 PO; +PANT40TA PO; +PROM25TA16 PO
[2017-12-01 12:48] LABS: BASO % 0.3 %; BASO ABS # 0.03 K/uL (0-0.2); HEMATOCRIT 39.3 % (37-47); HEMOGLOBIN 13.3 g/dL (12.0-16.0); IG# 0.04 K/uL (0.00-0.02); LYMPH % 7.9 %; LYMPH ABS # 0.73 K/uL (1.2-3.4); MEAN CELL VOLUME 88.3 fL (80-100); MEAN CORPUSCULAR HEMOGLOBIN 29.9 pg (25-34); MEAN CORPUSCULAR HGB CONC 33.8 g/dl (32-36); MEAN PLATELET VOLUME 11.8 fL (7.4-10.4); MONO % 5.1 %; MONO ABS # 0.47 K/uL (0.11-0.59); NEUT % 86.3 %; NEUT ABS # 7.98 K/uL (1.4-6.5); PLATELET COUNT 158 K/uL (130-400); RED CELL DISTRIBUTION WIDTH CV 14.2 % (11.5-14.5); RED CELL DISTRIBUTION WIDTH SD 46.2 fL (36.4-46.3); WHITE BLOOD COUNT 9.25 K/uL (4.8-10.8)
[2017-12-01 13:14] LABS: ALBUMIN 2.6 gm/dl (3.4-5.0); ALKALINE PHOSPHATASE 307 U/L (45-117); ALT/SGPT 73 U/L (12-78); AST/SGOT 54 U/L (15-37); BLOOD UREA NITROGEN 44 mg/dl (7-18); CALCIUM 8.2 mg/dl (8.5-10.1); CARBON DIOXIDE 23 mmol/L (21-32); CREATININE 1.32 mg/dl (0.60-1.20); GLUCOSE 89 mg/dl (70-99); POTASSIUM 4.3 mmol/L (3.5-5.1); SODIUM 129 mmol/L (136-145); TOTAL PROTEIN 7.2 gm/dl (6.4-8.2)
== END | disposition home or self-care (01) ==
LOC: C.LABBFT 10:10
PROVIDERS: ATTEND Physician Assistant Medical
DX: R50.9 Fever, unspecified (principal)

== ENCOUNTER 2017-12-04 08:37 | Emergency (ER) | payer OTHER, BC ==
[~2017-12-04] VITALS: Ht 162.6 cm; Wt 63.8 kg
[~2017-12-04 08:37] MED LIST changes: +DOXY100C76 PO; +PANT40TA PO; +PROM25TA16 PO
[2017-12-04 08:43] VITALS: TEMP 36.7; Ht 162.6 cm; Wt 63.8 kg
[2017-12-04 08:59] VITALS: O2SAT 95
[2017-12-04] MEDS ORDERED: SODIUM CHLORIDE 0.9% 500ML 500 ML IV STA (09:03)
[2017-12-04] MEDS ORDERED: SODIUM CHLORIDE 0.9% 1000ML 1,000 ML IV STA (09:03)
--- NOTE | 2017-12-04 09:13 | EMERGENCY ROOM VISIT NOTE ---
History Report prepared by Fernie: Sixto Guerrero Under the Supervision of: Dr. Genna Chakraborty M.D. First contact with patient: 08:49 Chief Complaint: ILLNESS Stated Complaint: AFIB History of Present Illness The patient is a 72 year old female who presents to the Emergency Room with complaints of constant weakness beginning a week ago. The patient states she started to feel very fatigue and ill a week ago. She reports her onset was sudden. The patient notes she was taking her grandson horseback riding, and she obtained several mosquito bites a few days prior to her onset. She states she woke up in the middle of the night with damp clothes a few days ago. The patient denies recorded fevers. She reports she was evaluated by her PCP on Wednesday, had blood work obtained, and was discharged with doxycycline and Zofran. She reports the doxycycline was for a possible bacterial infection. The patient notes she received a call stating she had a low sodium and low kidney function. She states she was advised to go the ED for further care. The patient reports she was found to be in a-fib in the ED and went back into sinus rhythm on her own. She notes she was told to stop the doxycycline. The patient states she since then, she is still very fatigue and has left arm pain. She reports she has been weak with exertion and does not know if she is short of breath. She notes a chronic cough secondary to GERD. The patient denies sweating, recent trips, leg swelling, leg pain, pain with deep breath, blood in cough, vomiting, diarrhea, trouble moving bowels, sudden changes in weight, rashes, itching, sorethroat, and ear pain. Source of History: patient Onset: week ago Quality: other (weakness) Timing: constant Modifying Factors (Worsening): exertion Associated Symptoms: No fevers, No vomiting, No diarrhea, No rash Note: Denies: sweating, recent trips, leg swelling, leg pain, pain with deep breath, blood in cough, trouble moving bowels, sudden changes in weight, itching, sorethroat, and ear pain. Review of Systems See HPI for pertinent positives & negatives. A total of 10 systems reviewed and were otherwise negative. Past Medical & Surgical Surgical Problems: (1) History of tubal ligation Family History No pertinent family history Social History Smoking Status: Never Smoker Marital Status: Housing Status: lives with significant other Occupation Status: retired Current/Historical Medications Scheduled Doxycycline (Monohydrate) (Doxycycline), 1 TAB PO BID Pantoprazole (Protonix), 40 MG PO DAILY Allergies Coded Allergies: No Known Allergies (Verified , 12/04/17) Physical Exam Vital Signs Date Time Temp Pulse Resp B/P (MAP) Pulse Ox O2 Delivery O2 Flow Rate FiO2 12/04/17 15:50 84 120/66 95 12/04/17 13:22 82 126/75 96 Room Air 12/04/17 11:42 80 17 129/78 96 Room Air 12/04/17 10:09 85 18 134/71 95 Room Air 12/04/17 09:18 84 18 137/86 96 Room Air 12/04/17 09:00 93 12/04/17 08:59 95 Room Air 12/04/17 08:43 36.7 100 18 138/77 97 Room Air Physical Exam Vital signs reviewed. General: Fatigued-appearing 72 year old female, in no significant distress. HEENT: No scleral icterus, PERRLA, neck supple. Atraumatic. Cardiovascular: Regular rate and rhythm, no extra sounds. Pulmonary: Clear to auscultation bilaterally, normal work of breathing. Abdomen: Soft, nontender, nondistended, positive bowel sounds. Musculoskeletal: Atraumatic, no peripheral edema. Neurologic: Patient awake alert and oriented x 3, full strength in all 4 extremities. Cranial nerves 2 through 12 grossly intact. No meningeal signs Skin: Warm, dry, no rash Medical Decision & Procedures ER Provider Diagnostic Interpretation: Radiology results as stated below per my review and radiologist interpretation: SINGLE VIEW CHEST CLINICAL HISTORY: Generalized weakness. Fatigue. FINDINGS: An AP, portable, upright chest radiograph is compared to chest x-ray and chest CT dated 01/15/2017. The examination is degraded by portable technique and patient rotation. The heart is top normal for projection and there is atherosclerotic calcification of the thoracic aorta. The pulmonary vasculature is noncongested. Chronic interstitial thickening is similar to previous. A small left pleural effusion is noted and there is bibasilar atelectasis. Apical scarring is observed. No pneumothorax is seen. The skeletal structures are osteopenic. The bony thorax is grossly intact. IMPRESSION: 1. Suspect a trace left pleural effusion. 2. The lungs are otherwise clear. Electronically signed by: Eric Thomason M.D. 12/04/2017 9:31 AM Dictated Date/Time: 12/04/2017 9:[address] ANGIOGRAM OF THE CHEST CLINICAL HISTORY: Weakness. Fatigue. COMPARISON STUDY: Chest x-ray dated 1118. Chest CT dated 01/15/2017. TECHNIQUE: Following the IV administration of 76 of Optiray 320, CT angiogram of the chest is performed from the upper abdomen to the thoracic inlet utilizing the pulmonary embolus protocol. Images are reviewed in the axial, sagittal, and coronal planes. 3-D MIPS images of the chest are created and assessed. A dose lowering technique was utilized adhering to the principles of ALARA. CT DOSE: 237.80 mGy.cm FINDINGS: Thyroid: Imaged portions of the thyroid gland are normal in size and attenuation. Thoracic aorta: There is mild atherosclerotic calcification of the thoracic aorta, which is normal in caliber and demonstrates standard 3-vessel arch anatomy. No dissection is seen. Pulmonary vasculature: The pulmonary trunk is normal in caliber. There are no filling defects identified in the main, lobar, or segmental pulmonary arteries to indicate pulmonary embolus. Heart: The heart is enlarged and there is a small pericardial effusion. Lungs and pleural spaces: There are small pleural effusions with bibasilar atelectasis. Apical scarring is observed. No airspace consolidation is seen typical for pneumonia. The trachea and central airways are clear. Mediastinum: There is no mediastinal lymphadenopathy. Maria Dolores: Clear. Axillae: There is no axillary lymphadenopathy. Upper abdomen: There is a large hiatal hernia, with over half of the stomach located in the thoracic cavity. Partially visualized upper abdominal viscera is otherwise normal as imaged. Bony thorax: The skeletal structures are osteopenic. Degenerative change and hyperkyphosis are noted in the thoracic spine. No lytic or blastic lesions are identified. IMPRESSION: 1. There is no evidence of pulmonary embolus in the main, lobar, or segmental pulmonary arteries. 2. Cardiomegaly and small pericardial effusion. The pericardial effusion is new from 01/15/2017. 3. There are small pleural effusions with bibasilar atelectasis. 4. Large hiatal hernia. Electronically signed by: Eric Thomason M.D. 12/04/2017 11:22 AM Dictated Date/Time: 12/04/2017 11:17 AM Laboratory Results 12/04/17 09:00 Red Blood Count 4.33, Mean Corpuscular Volume 89.4, Mean Corpuscular Hemoglobin 29.8, Mean Corpuscular Hemoglobin Concent 33.3, Mean Platelet Volume 10.5, Neutrophils (%) (Auto) 39.9, Lymphocytes (%) (Auto) 41.0, Monocytes (%) (Auto) 14.1, Eosinophils (%) (Auto) 0.4, Basophils (%) (Auto) 0.9, Neutrophils # (Auto ) 1.84, Lymphocytes # (Auto) 1.89, Monocytes # (Auto) 0.65, Eosinophils # (Auto ) 0.02, Basophils # (Auto) 0.04 12/04/17 09:00 Test 12/04/17 09:00 12/04/17 10:06 White Blood Count 4.61 K/uL (4.8-10.8) Red Blood Count 4.33 M/uL (4.2-5.4) Hemoglobin 12.9 g/dL (12.0-16.0) Hematocrit 38.7 % (37-47) Mean Corpuscular Volume 89.4 fL (80-100) Mean Corpuscular Hemoglobin 29.8 pg (25-34) Mean Corpuscular Hemoglobin Concent 33.3 g/dl (32-36) Platelet Count 374 K/uL (130-400) Mean Platelet Volume 10.5 fL (7.4-10.4) Neutrophils (%) (Auto) 39.9 % Lymphocytes (%) (Auto) 41.0 % Monocytes (%) (Auto) 14.1 % Eosinophils (%) (Auto) 0.4 % Basophils (%) (Auto) 0.9 % Neutrophils # (Auto) 1.84 K/uL (1.4-6.5) Lymphocytes # (Auto) 1.89 K/uL (1.2-3.4) Monocytes # (Auto) 0.65 K/uL (0.11-0.59) Eosinophils # (Auto) 0.02 K/uL (0-0.5) Basophils # (Auto) 0.04 K/uL (0-0.2) RDW Standard Deviation 47.3 fL (36.4-46.3) RDW Coefficient of Variation 14.5 % (11.5-14.5) Immature Granulocyte % (Auto) 3.7 % Immature Granulocyte # (Auto) 0.17 K/uL (0.00-0.02) Erythrocyte Sedimentation Rate 56 mm/hr (0-21) D-Dimer 4460 ug/L FEU (0-500) Anion Gap 7.0 mmol/L (3-11) Est Creatinine Clear Calc Drug Dose 59.4 ml/min Estimated GFR () 92.9 Estimated GFR (Non- 80.2 BUN/Creatinine Ratio 11.5 (10-20) Calcium Level 8.1 mg/dl (8.5-10.1) Magnesium Level 2.0 mg/dl (1.8-2.4) Total Bilirubin 0.5 mg/dl (0.2-1) Direct Bilirubin 0.3 mg/dl (0-0.2) Aspartate Amino Transf (AST/SGOT) 50 U/L (15-37) Alanine Aminotransferase (ALT/SGPT) 51 U/L (12-78) Alkaline Phosphatase 206 U/L (45-117) Troponin I < 0.015 ng/ml (0-0.045) C-Reactive Protein 6.05 mg/dl (0-0.29) Total Protein 7.3 gm/dl (6.4-8.2) Albumin 2.6 gm/dl (3.4-5.0) Thyroid Stimulating Hormone (TSH) 2.510 uIu/ml (0.300-4.500) Urine Color YELLOW Urine Appearance CLEAR (CLEAR) Urine pH 7.0 (4.5-7.5) Urine Specific [place] 1.004 (1.000-1.030) Urine Protein NEG (NEG) Urine Glucose (UA) NEG (NEG) Urine Ketones NEG (NEG) Urine Occult Blood NEG (NEG) Urine Nitrite NEG (NEG) Urine Bilirubin NEG (NEG) Urine Urobilinogen NEG (NEG) Urine Leukocyte Esterase NEG (NEG) Laboratory results per my review. Medications Administered Medications (Trade) Dose Ordered Sig/Radha Route Start Time Stop Time Status Last Admin Dose Admin Sodium Chloride 500 ml @ 999 mls/hr Q31M STAT IV 12/04/17 09:03 12/04/17 09:33 DC 12/04/17 09:18 999 MLS/HR Sodium Chloride 1,000 ml @ 150 mls/hr Q6H40M STAT IV 12/04/17 09:03 12/04/17 15:42 DC 12/04/17 10:08 150 MLS/HR ECG Per My Interpretation Indication: weakness Rate (beats per minute): 91 Rhythm: normal sinus Findings: no acute ischemic change, no ectopy ED Course 09: Past medical records reviewed. The patient was evaluated in room B07. A complete history and physical examination was performed. 1137: I discussed the patient's case with Dr. Mackay, Cardiology. He agreed to perform an echocardiogram today. 1156: I reevaluated the patient and discussed the need for an echocardiogram. She agreed with the plan. 1424: The patient just left the department to get her echocardiogram. 1459: I spoke with Dr. Mackay again. The patient's echocardiogram was within normal limits. 1527: Upon reevaluation, the patient appeared to have improvement of her symptoms. I discussed findings with her. She verbalized agreement of the treatment plan. The patient was discharged home. Medical Decision Differential diagnosis: Etiologies such as metabolic, infection, hypo/hyperglycemia, electrolyte abnormalities, cardiac sources, intracerebral event, toxicologic, neurologic, as well as others were entertained. This patient was evaluated and appeared to be in no significant distress. IV access was obtained and laboratory work was drawn. The patient was hydrated with normal saline solution. Chest x-ray was performed and is significant for left basilar atelectasis and trace pleural effusion. Patient's d-dimer is noted to be markedly elevated and a subsequent CT scan of the chest was performed and is read as significant for the atelectasis, pleural effusion and pericardial effusion. Sed rate and CRP were added and are noted to be elevated. Dr. Mackay of cardiology was consulted and agreed to perform an echocardiogram which is largely negative. Recent Lyme titers are negative. I did speak with Dr. Paty Strauss of the hospitalist service who has suggested that perhaps the patient has not seroconverted to Lyme however treatment will be initiated. The patient will be started on 100 mg of doxycycline twice daily for 3 weeks. She will follow-up with her PCP for reevaluation and return to the ED for worsening of symptoms or any medical concerns. Medication Reconcilliation Current Medication List: was personally reviewed by me Blood Pressure Screening Patient's blood pressure: Normal blood pressure Blood pressure disposition: Did not require urgent referral Consults Time Called: [id number] Consulting Physician: Dr. Mackay, Cardiology Returned Call: [phone] I discussed the patient's case with Dr. Mackay, Cardiology. He agreed to perform an echocardiogram today. 1432: I spoke with Dr. Mackay again. The patient's echocardiogram was within normal limits. Impression Primary Impression: Pericardial effusion Additional Impressions: Atelectasis of left lung Pleural effusion on left Scribe Attestation The scribe's documentation has been prepared under my direction and personally reviewed by me in its entirety. I confirm that the note above accurately reflects all work, treatment, procedures, and medical decision making performed by me. Departure Information Dispostion Home / Self-Care Prescriptions Doxycycline (Monohydrate) (Doxycycline) 100 Mg Cap 1 TAB PO BID for 21 Days, #42 TAB Prov: Genna Chakraborty M.D. 12/04/17 Referrals Amos Croft M.D. (PCP) Forms HOME CARE DOCUMENTATION FORM, IMPORTANT VISIT INFORMATION, WORK / SCHOOL INSTRUCTIONS Patient Instructions [facility] Additional Instructions Diagnosis: Left basilar atelectasis, small left pleural effusion, small pericardial effusion Doxycycline 100 mg twice daily for 3 weeks. Tylenol 650 mg every 6 hours as needed for pain or fever. Ibuprofen 600 mg every 6 hours as needed for pain or fever with food. Drink plenty of clear fluids. Follow-up with your primary care physician next week as scheduled. Return to the ED immediately for fever, increased pain or any medical concerns. Problem Qualifiers
[2017-12-04 09:17] LABS: BASO % 0.9 %; BASO ABS # 0.04 K/uL (0-0.2); EOS % 0.4 %; EOS ABS # 0.02 K/uL (0-0.5); HEMATOCRIT 38.7 % (37-47); HEMOGLOBIN 12.9 g/dL (12.0-16.0); IG# 0.17 K/uL (0.00-0.02); LYMPH ABS # 1.89 K/uL (1.2-3.4); MEAN CELL VOLUME 89.4 fL (80-100); MEAN CORPUSCULAR HEMOGLOBIN 29.8 pg (25-34); MEAN CORPUSCULAR HGB CONC 33.3 g/dl (32-36); MEAN PLATELET VOLUME 10.5 fL (7.4-10.4); MONO % 14.1 %; MONO ABS # 0.65 K/uL (0.11-0.59); NEUT % 39.9 %; NEUT ABS # 1.84 K/uL (1.4-6.5); PLATELET COUNT 374 K/uL (130-400); RED CELL DISTRIBUTION WIDTH CV 14.5 % (11.5-14.5); RED CELL DISTRIBUTION WIDTH SD 47.3 fL (36.4-46.3); WHITE BLOOD COUNT 4.61 K/uL (4.8-10.8)
--- NOTE | 2017-12-04 09:32 | DIAGNOSTIC IMAGING REPORT ---
SINGLE VIEW CHEST CLINICAL HISTORY: Generalized weakness. Fatigue. FINDINGS: An AP, portable, upright chest radiograph is compared to chest x-ray and chest CT dated 01/15/2017. The examination is degraded by portable technique and patient rotation. The heart is top normal for projection and there is atherosclerotic calcification of the thoracic aorta. The pulmonary vasculature is noncongested. Chronic interstitial thickening is similar to previous. A small left pleural effusion is noted and there is bibasilar atelectasis. Apical scarring is observed. No pneumothorax is seen. The skeletal structures are osteopenic. The bony thorax is grossly intact. IMPRESSION: 1. Suspect a trace left pleural effusion. 2. The lungs are otherwise clear. Electronically signed by: Eric Thomason M.D. 12/04/2017 9:31 AM Dictated Date/Time: 12/04/2017 9:29 AM
[2017-12-04 09:41] LABS: ALBUMIN 2.6 gm/dl (3.4-5.0); ALKALINE PHOSPHATASE 206 U/L (45-117); ALT/SGPT 51 U/L (12-78); AST/SGOT 50 U/L (15-37); BLOOD UREA NITROGEN 9 mg/dl (7-18); CALCIUM 8.1 mg/dl (8.5-10.1); CARBON DIOXIDE 28 mmol/L (21-32); CREATININE 0.75 mg/dl (0.60-1.20); GLUCOSE 92 mg/dl (70-99); POTASSIUM 3.5 mmol/L (3.5-5.1); SODIUM 137 mmol/L (136-145); TOTAL PROTEIN 7.3 gm/dl (6.4-8.2)
[2017-12-04] MEDS ORDERED: OPTIRAY 320 IV PRN (10:15)
--- NOTE | 2017-12-04 11:23 | DIAGNOSTIC IMAGING REPORT ---
CT ANGIOGRAM OF THE CHEST CLINICAL HISTORY: Weakness. Fatigue. COMPARISON STUDY: Chest x-ray dated 1118. Chest CT dated 01/15/2017. TECHNIQUE: Following the IV administration of 76 of Optiray 320, CT angiogram of the chest is performed from the upper abdomen to the thoracic inlet utilizing the pulmonary embolus protocol. Images are reviewed in the axial, sagittal, and coronal planes. 3-D MIPS images of the chest are created and assessed. A dose lowering technique was utilized adhering to the principles of ALARA. CT DOSE: 237.80 mGy.cm FINDINGS: Thyroid: Imaged portions of the thyroid gland are normal in size and attenuation. Thoracic aorta: There is mild atherosclerotic calcification of the thoracic aorta, which is normal in caliber and demonstrates standard 3-vessel arch anatomy. No dissection is seen. Pulmonary vasculature: The pulmonary trunk is normal in caliber. There are no filling defects identified in the main, lobar, or segmental pulmonary arteries to indicate pulmonary embolus. Heart: The heart is enlarged and there is a small pericardial effusion. Lungs and pleural spaces: There are small pleural effusions with bibasilar atelectasis. Apical scarring is observed. No airspace consolidation is seen typical for pneumonia. The trachea and central airways are clear. Mediastinum: There is no mediastinal lymphadenopathy. Maria Dolores: Clear. Axillae: There is no axillary lymphadenopathy. Upper abdomen: There is a large hiatal hernia, with over half of the stomach located in the thoracic cavity. Partially visualized upper abdominal viscera is otherwise normal as imaged. Bony thorax: The skeletal structures are osteopenic. Degenerative change and hyperkyphosis are noted in the thoracic spine. No lytic or blastic lesions are identified. IMPRESSION: 1. There is no evidence of pulmonary embolus in the main, lobar, or segmental pulmonary arteries. 2. Cardiomegaly and small pericardial effusion. The pericardial effusion is new from 01/15/2017. 3. There are small pleural effusions with bibasilar atelectasis. 4. Large hiatal hernia. Electronically signed by: Eric Thomason M.D. 12/04/2017 11:22 AM Dictated Date/Time: 12/04/2017 11:17 AM
--- NOTE | 2017-12-04 15:02 | ECHOCARDIOGRAM REPORT ---
*NOTICE TO RECEIVING CONSTITUTION PARTY AGENCY This information is strictly Confidential and protected under [place] law. [place] law prohibits you from making any further disclosure of this information unless further disclosure is expressly permitted by the written consent of the person to whom it pertains or is authorized by law. A general authorization for the release of medical or other information is not sufficient for this purpose. Hospital accepts no responsibility if the information is made available to any other person, INCLUDING THE PATIENT. Interpretation Summary * Name: SHONA MA Study Date: 12/04/2017 01:43 PM BP: 126/75 mmHg * Patient Location: EDB7 HR: 82 * : 1945 (M/d/yyyy) Gender: Female Height: 64 in * Age: 72 yrs Ethnicity: [place] Weight: 140 lb * Ordering Physician: Genna Chakraborty * Referring Physician: Self, Referred * Performed By: Irma Wade RDCS * * Reason For Study: Pericardial effusion * BSA: 1.7 m2 * -- Conclusions -- * Left ventricular systolic function is normal. * Right ventricular systolic pressure is normal. * No significant valvular disease Procedure Details * A complete two-dimensional transthoracic echocardiogram was performed (2D, M-mode, Doppler and color flow Doppler). Left Ventricle * The left ventricle is normal in size. * There is normal left ventricular wall thickness. * Ejection Fraction = 60-65%. * Left ventricular systolic function is normal. * The left ventricular wall motion is normal. Right Ventricle * The right ventricle is normal in size and function. Atria * The left atrial size is normal. * Right atrial size is normal. Mitral Valve * The mitral valve anatomy is normal. * There is borderline mitral valve prolapse. * There is trace mitral regurgitation. Tricuspid Valve * The tricuspid valve is not well visualized, but is grossly normal. * There is trace tricuspid regurgitation. * Right ventricular systolic pressure is normal. Aortic Valve * The aortic valve is normal in structure and function. * The aortic valve is trileaflet. * No hemodynamically significant valvular aortic stenosis. * Trace aortic regurgitation. Pulmonic Valve * The pulmonic valve is not well seen, but is grossly normal. * Trace pulmonic valvular regurgitation. Great Vessels * The aortic root is normal size. Pericardium/Pleural * There is no pericardial effusion. Great Vessels * Normal inferior vena cava diameter and respiratory variation suggests normal central venous pressure. MMode 2D Measurements and Calculations IVSd 0.84 cm LVIDd 3.9 cm LVIDs 2.1 cm LVPWd 0.91 cm IVS/LVPW 0.93 FS 44.9 % EDV(Teich) 65.9 ml ESV(Teich) 15.2 ml EF(Teich) 76.9 % EDV(cubed) 59.3 ml ESV(cubed) 9.9 ml EF(cubed) 83.3 % LV mass(C)d 101.9 grams LV mass(C)dI 60.6 grams/m\S\2 SV(Teich) 50.7 ml SI(Teich) 30.1 ml/m\S\2 SV(cubed) 49.4 ml SI(cubed) 29.4 ml/m\S\2 Ao root diam 2.9 cm Ao root area 6.7 cm\S\2 ACS 1.9 cm LA dimension 3.8 cm asc Aorta Diam 3.1 cm LA/Ao 1.3 LVOT diam 2.0 cm LVOT area 3.2 cm\S\2 LVAd ap4 21.5 cm\S\2 LVLd ap4 6.1 cm EDV(MOD-sp4) 62.7 ml EDV(sp4-el) 64.3 ml LVAs ap4 12.7 cm\S\2 LVLs ap4 5.4 cm ESV(MOD-sp4) 25.2 ml ESV(sp4-el) 25.0 ml EF(MOD-sp4) 59.9 % EF(sp4-el) 61.1 % LVAd ap2 15.3 cm\S\2 LVLd ap2 5.8 cm EDV(MOD-sp2) 32.5 ml EDV(sp2-el) 34.3 ml LVAs ap2 8.4 cm\S\2 LVLs ap2 4.8 cm ESV(MOD-sp2) 12.2 ml ESV(sp2-el) 12.3 ml EF(MOD-sp2) 62.4 % EF(sp2-el) 64.1 % LVLd %diff -4.20 % EDV(MOD-bp) 45.2 ml LVLs %diff -12.66 % ESV(MOD-bp) 18.6 ml EF(MOD-bp) 58.8 % SV(MOD-sp4) 37.5 ml SI(MOD-sp4) 22.3 ml/m\S\2 SV(MOD-sp2) 20.3 ml SI(MOD-sp2) 12.1 ml/m\S\2 SV(MOD-bp) 26.6 ml SI(MOD-bp) 15.8 ml/m\S\2 SV(sp4-el) 39.3 ml SI(sp4-el) 23.4 ml/m\S\2 SV(sp2-el) 22.0 ml SI(sp2-el) 13.1 ml/m\S\2 Doppler Measurements and Calculations MV E max eric 88.4 cm/sec MV A max reic 63.1 cm/sec MV E/A 1.4 MV dec time 0.14 sec Ao V2 max 87.3 cm/sec Ao max PG 3.0 mmHg Ao max PG (full) 0.33 mmHg SHANNON(V,A) 3.0 cm\S\2 SHANNON(V,D) 3.0 cm\S\2 LV V1 max PG 2.7 mmHg LV V1 max 82.5 cm/sec PA V2 max 69.0 cm/sec PA max PG 1.9 mmHg PA acc slope 424.6 cm/sec\S\2 PA acc time 0.14 sec TR max eric 225.3 cm/sec PA pr(Accel) 14.4 mmHg
[2017-12-04] MEDS ORDERED: DOXY-300 PO (15:35)
[2017-12-04 15:50] VITALS: BP 120/66; PULSE 84; O2SAT 95
== END 2017-12-04 15:51 | disposition home or self-care (01) ==
LOC: C.EDB 08:38
DX: I31.3 Pericardial effusion (noninflammatory) (principal); J98.11 Atelectasis; J90 Pleural effusion, not elsewhere classified; Z79.899 Other long term (current) drug therapy